=== PATIENT | female | born 1995 | race Caucasian/White ===

== ENCOUNTER 2021-09-21 22:51 | Observation (INO) | payer MEDICAID, OTHER ==
[~2021-09-21] VITALS: Ht 157.5 cm; Wt 103.4 kg
[2021-09-21] MEDS ORDERED: PNV1TABL76 MT (23:28)
[2021-09-22 00:03] LABS: CLARITY URINE CLOUDY (CLEAR); COLOR URINE YELLOW (YELLOW); KETONES URINE NEGATIVE (NEGATIVE); LEUKOCYTE ESTERASE URINE 3+ (NEGATIVE); NITRITE URINE NEGATIVE (NEGATIVE); OCCULT BLOOD URINE TRACE (NEGATIVE); PROTEIN URINE NEGATIVE (NEGATIVE); SPECIFIC GRAVITY URINE 1.014 (1.005-1.030); UROBILINOGEN URINE 0.2 E.U./dL (0.2-1.0)
[2021-09-22] MEDS ORDERED: LACTATED RINGERS 1,000 ML IV SCH (00:45)
[2021-09-22] MEDS ORDERED: CEFAZOLIN 2,000 MG in DEXT 5% WATER 100 ML IV NR (01:30)
== END 2021-09-22 02:05 | disposition home or self-care (01) ==
LOC: 8 EST LDRP 22:51
PROVIDERS: ADMIT Specialist; ATTEND Specialist
DX: O26.893 Other specified pregnancy related conditions, third trimester (principal); R10.30 Lower abdominal pain, unspecified; O62.9 Abnormality of forces of labor, unspecified; Z3A.28 28 weeks gestation of pregnancy
CPT/HCPCS: 59025; 81003; 87086; 96365; J0690; J7060; 96360; 99281; G0378